=== PATIENT | male | born 1935 | race Caucasian/White ===

== ENCOUNTER 2023-09-12 11:02 | Emergency (ER) | payer OTHER ==
--- OUTSIDE RECORDS SUMMARY | 2023-09-12 11:04 | XMS REPORT | Continuity of Care Document ---
Author Name Unknown Address [address] [place] [address] [address] th[address] Address 1200 [facility] 1 495 [place] [address] Care Team Providers Care Naval Inspector Name Role Phone BHARATHI MCGEE Primary Care Physician Russel Jerome Attending Clinician Unavailable [place] Attending Clinician UnavailMANI Stephens WAITER/WAITRESS CAFETERIA Attending Clinician Russel Trimble Admitting Clinician Unavailable BHARATHI MCGEE Admitting Clinician Unavailable [place] Admitting Clinician Ely marroquin Payers Payer Name Policy Type Policy Number Effective Date Expirati on Date Source MEDICARE [place]: [employer] [id number] 2001 00:00:00 OPALAHA (MEDICARE SUPPLEMENT) [id number] 2015 00:00:00 Problems Condition Name Condition Details Condition Category Status Onset Date Resolution Date Last Treatment Date Treating Clinician Comments Source 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 Problem Active 08-20 00:00: 00 [facility] Stenosis of interverte bral foramina Stenosis of Interverte bral Foramina Problem Active 08-20 00:00: 00 [facility] Low back pain Low Back Pain Problem Active 08-20 00:00: 00 [facility] Lumbar radiculopa thy Lumbar Radiculopa thy Problem Active 08-18 00:00: 00 [facility] Allergies, Adverse Reactions, Alerts Allergy Name Allergy Type Status Severity Reaction(s) Onset Date Inactive Date Treating Clinician Comments Source No Known Drug Allergie s DA Active U 2023-08-26 00:00: 00 [facility] Social History Smoking Status Start Date Stop Date Source Former Smoker [facility] Medications Ordered Medication Name Filled Medication Name Start Date Stop Date Current Medication? Ordering Clinician Indication Dosage Frequency Signature (SIG) Comments Components Source ciprofloxac in 250 mg tablet TAKE 1 TABLET BY MOUTH EVERY 12 HOURS FOR 10 DAYS ciprofloxac in 250 mg tablet TAKE 1 TABLET BY MOUTH EVERY 12 HOURS FOR 10 DAYS No ciprofloxa linnea 250 mg tablet TAKE 1 TABLET BY MOUTH EVERY 12 HOURS FOR 10 DAYS [facility] clonidine HCl 0.1 mg tablet TAKE 1 TABLET BY MOUTH TWICE A DAY FOR 30 DAYS clonidine HCl 0.1 mg tablet TAKE 1 TABLET BY MOUTH TWICE A DAY FOR 30 DAYS No clonidine HCl 0.1 mg tablet TAKE 1 TABLET BY MOUTH TWICE A DAY FOR 30 DAYS [facility] clonidine HCl 0.2 mg tablet TAKE 2 TABLETS BY MOUTH 3 TIMES A DAY clonidine HCl 0.2 mg tablet TAKE 2 TABLETS BY MOUTH 3 TIMES A DAY No clonidine HCl 0.2 mg tablet TAKE 2 TABLETS BY MOUTH 3 TIMES A DAY [facility] clonidine HCl 0.3 mg tablet TAKE 1 TABLET BY MOUTH THREE TIMES A DAY ORALLY EVERY 8 HOURS 90 DAYS clonidine HCl 0.3 mg tablet TAKE 1 TABLET BY MOUTH THREE TIMES A DAY ORALLY EVERY 8 HOURS 90 DAYS No clonidine HCl 0.3 mg tablet TAKE 1 TABLET BY MOUTH THREE TIMES A DAY ORALLY EVERY 8 HOURS 90 DAYS [facility] diclofenac sodium 50 mg tablet,helga yed release TAKE 1 TABLET BY MOUTH TWICE A DAY NEEDED FOR 5 DAYS diclofenac sodium 50 mg tablet,helga yed release TAKE 1 TABLET BY MOUTH TWICE A DAY NEEDED FOR 5 DAYS No diclofenac sodium 50 mg tablet,del ayed release TAKE 1 TABLET BY MOUTH TWICE A DAY NEEDED FOR 5 DAYS [facility] gabapentin 300 mg capsule TAKE 2 CAPSULES BY MOUTH 3 TIMES A DAY gabapentin 300 mg capsule TAKE 2 CAPSULES BY MOUTH 3 TIMES A DAY No gabapentin 300 mg capsule TAKE 2 CAPSULES BY MOUTH 3 TIMES A DAY [facility] hydrochloro thiazide 25 mg tablet TAKE 1 TABLET BY MOUTH EVERY DAY IN THE MORNING FOR 30 DAYS hydrochloro thiazide 25 mg tablet TAKE 1 TABLET BY MOUTH EVERY DAY IN THE MORNING FOR 30 DAYS No hydrochlor othiazide 25 mg tablet TAKE 1 TABLET BY MOUTH EVERY DAY IN THE MORNING FOR 30 DAYS [facility] hydrocodone 10 mg-acetamin ophen 325 mg tablet Take 1 tablet every 6 hours by oral route for 7 days. hydrocodone 10 mg-acetamin ophen 325 mg tablet Take 1 tablet every 6 hours by oral route for 7 days. No hydrocodon e 10 mg-acetami nophen 325 mg tablet Take 1 tablet every 6 hours by oral route for 7 days. [facility] hydrocodone 5 mg-acetamin ophen 325 mg tablet TAKE 1 TABLET BY MOUTH EVERY 6 HOURS NEEDED hydrocodone 5 mg-acetamin ophen 325 mg tablet TAKE 1 TABLET BY MOUTH EVERY 6 HOURS NEEDED No hydrocodon e 5 mg-acetami nophen 325 mg tablet TAKE 1 TABLET BY MOUTH EVERY 6 HOURS NEEDED [facility] hydrocodone 7.5 mg-acetamin ophen 325 mg tablet TAKE 1 TABLET BY MOUTH EVERY 6 HOURS NEEDED FOR PAIN hydrocodone 7.5 mg-acetamin ophen 325 mg tablet TAKE 1 TABLET BY MOUTH EVERY 6 HOURS NEEDED FOR PAIN No hydrocodon e 7.5 mg-acetami nophen 325 mg tablet TAKE 1 TABLET BY MOUTH EVERY 6 HOURS NEEDED FOR PAIN [facility] ketorolac 10 mg tablet TAKE 1 TABLET BY MOUTH EVERY 6 HOURS FOR 5 DAYS ketorolac 10 mg tablet TAKE 1 TABLET BY MOUTH EVERY 6 HOURS FOR 5 DAYS No ketorolac 10 mg tablet TAKE 1 TABLET BY MOUTH EVERY 6 HOURS FOR 5 DAYS [facility] methocarbam ol 750 mg tablet TAKE 1 TABLET BY MOUTH EVERY 4 HOURS NEEDED FOR 15 DAYS methocarbam ol 750 mg tablet TAKE 1 TABLET BY MOUTH EVERY 4 HOURS NEEDED FOR 15 DAYS No methocarba mol 750 mg tablet TAKE 1 TABLET BY MOUTH EVERY 4 HOURS NEEDED FOR 15 DAYS [facility] nebivolol 20 mg tablet TAKE 1 TABLET BY MOUTH EVERY DAY FOR 30 DAYS nebivolol 20 mg tablet TAKE 1 TABLET BY MOUTH EVERY DAY FOR 30 DAYS No nebivolol 20 mg tablet TAKE 1 TABLET BY MOUTH EVERY DAY FOR 30 DAYS [facility] nifedipine ER 60 mg tablet,exte nded release TAKE 1 TABLET BY MOUTH EVERY DAY ON EMPTY STOMACH FOR 30 DAYS nifedipine ER 60 mg tablet,exte nded release TAKE 1 TABLET BY MOUTH EVERY DAY ON EMPTY STOMACH FOR 30 DAYS No nifedipine ER 60 mg tablet,ext ended release TAKE 1 TABLET BY MOUTH EVERY DAY ON EMPTY STOMACH FOR 30 DAYS [facility] tamsulosin 0.4 mg capsule TAKE 1 CAPSULE BY MOUTH EVERY DAY FOR 30 DAYS tamsulosin 0.4 mg capsule TAKE 1 CAPSULE BY MOUTH EVERY DAY FOR 30 DAYS No tamsulosin 0.4 mg capsule TAKE 1 CAPSULE BY MOUTH EVERY DAY FOR 30 DAYS [facility] tramadol 50 mg tablet TAKE 1 TABLET BY MOUTH EVERY 4-6 HOURS X 7 DAYS tramadol 50 mg tablet TAKE 1 TABLET BY MOUTH EVERY 4-6 HOURS X 7 DAYS No tramadol 50 mg tablet TAKE 1 TABLET BY MOUTH EVERY 4-6 HOURS X 7 DAYS [facility] Procedures Procedure Date / Time Performed Performing Clinician Source RADEX SPI LUMBOSAC COMPL W/BENDING VIEWS 2023-08-19 00:00:00 [facility] Gall[facility] Encounters Start Date/Time End Date/Time Encounter Type Admission Type Attending Clinicians Care Facility Care Department Encounter ID Source 2023-09-18 09:45:00 Inpatient Russel Landa [facility] [id number] [facility] 2023-09-09 00:00:00 2023-09-09 00:00:00 Candelario Guzman MD: [address] [place] [address] , Ph. [phone] [facility] [id number] [facility] 2023-08-28 07:43:00 2023-08-28 07:43:00 Outpatient Jacques Landar [facility] [id number] [facility] [place] [facility] 2023-08-28 00:00:00 2023-08-28 00:00:00 Stockton Rai, MD: [address] [place] [phone] , Ph. [facility] [place] [facility]_OP [id number] [facility] 2023-08-21 00:00:00 2023-08-21 00:00:00 Brionna Cantrell PA: [address] [place] [phone] , Ph. [phone] [facility] [place] [facility] [id number] [facility] 2023-08-21 00:00:00 2023-08-21 00:00:00 Brionna Cantrell PA: [address] [place] [phone] , Ph. [phone] [place] [facility] [place] [id number] [facility] 2023-08-19 00:00:00 2023-08-19 00:00:00 Candelario Guzman MD: [address] [place] [phone] , Ph. [phone] [facility]_Thomas [facility] [place] [facility] [id number] [facility] 2023-08-19 00:00:00 2023-08-19 00:00:00 Candelario Guzman MD: [address] [place] [phone] , Ph. [phone] [facility] [place] [facility] [place] [id number] [facility] 2023-08-10 00:00:00 2023-08-10 00:00:00 Outpatient [facility] [id number] [facility] 2023-08-05 00:00:00 2023-08-05 00:00:00 Outpatient [facility] [id number] [facility] 2023-04-30 16:49:00 2023-04-30 16:49:00 Outpatient MANI WONG [facility] [id number] SASKIA Flaherty [facility] Results Test Description Test Time Test Comments Results Resul t Comments Source - XR FLUORO FOR SPINE INJ 2023-09-04 18:35:00 [facility] 1935 Sex: M Patient Name: YENI BOWMAN Unit No: [id number] EXAMS: CPT CODE: [id number] XR FLUORO FOR SPINE INJ 66723 LUMBAR EPIRADICULAR INJECTION PREOPERATIVE DIAGNOSIS: Lumbar Radiculitis POSTOPERATIVE DIAGNOSIS: Same as above PROCEDURES PERFORMED: Fluoroscopically guided needle localization of the right L3, L4, L5 spinal nerves with transforaminal epidurograms and epidural injection of local anesthetic and steroid. FINDINGS: Preinjection VAS 7/10. Postinjection VAS 0/10. Steroid response pending follow-up. ESTIMATED BLOOD LOSS: Minimal ANESTHESIA: TIVA COMPLICATIONS: None DETAILS OF PROCEDURE: After obtaining stable vital signs, informed consent and IV access, with no contraindications, the patient was taken to the operating room and placed in a prone position with all extremities padded and appropriate monitors placed. The patient was sterilely prepped and draped over the lumbosacral spine. Using fluoroscopic visualization the insertion sites were marked for paravertebral approaches and using standard technique, a 25 gauge needle was advanced to the base of each pedicle without paresthesias. Isovue-300 contrast 0.2 mL of was injected at each level incrementally with frequent negative aspirations to produce each epidurogram. There were no signs of intravascular or intrathecal uptake. Bupivicaine 0.75% 0.25 mL with lidocaine 4% 0.5 mL and Decadron 5 mg was then incrementally injected with frequent negative aspirations at each level and again there were no signs of intravascular or intrathecal uptake. The needles were removed and the patient was taken to the PACU in good condition. Image: Image 1 Image: Image 2 at 1835 Reported and signed by: RAI TALLEY MD CC: Russel Atwood MD Technologist: ARABELLA LALA (ARRT) Transcribed D/ (1834) [facility] NAME: YENI BOWMAN [address] [facility] PHYS: Russel Morton MD [place], [place] [address] : 1935 AGE: 87 SEX: M LOC: PANDA PHONE #: [phone] EXAM DATE: 08/28/2023 STATUS: DEP [facility] FAX #: [phone] RAD #: D/C DT PAGE 1 Signed Report Patient Name: YENI BOWMAN Unit No: [id number] EXAMS: CPT CODE: [id number] XR FLUORO FOR SPINE INJ 35535 (Continued) Orig Print D/T: S: 09/04/2023 (1837) [facility] NAME: YENI BOWMAN [address] [facility] PHYS: Russel Morton MD [place], [place] [address] : 1935 AGE: 87 SEX: M LOC: PANDA PHONE #: [phone] EXAM DATE: 08/28/2023 STATUS: DEP [facility] [place] #: [phone] RAD #: D/C DT PAGE 2 Signed Report
[2023-09-12] MEDS ORDERED: ONDANSETRON 4 MG/2 ML VIAL ONE (11:28)
[2023-09-12] MEDS ORDERED: NA CHLORIDE 0.9% 1,000 ML ONE (11:28)
[2023-09-12] MEDS ORDERED: LACTULOSE 20 GM/30 ML UCUP ONE (11:28)
[2023-09-12 11:50] LABS: Absolute Basophils 0.1 K/uL (0-0.5); Absolute Eosinophils 0.1 K/uL (0-0.5); Absolute Monocytes 1.2 K/uL (0.1-1.3); Absolute Neutrophil 9.4 K/uL (1.8-8.0); Basophils % 1.1 % (0-1.3); Eosinophils % 0.5 % (0-4.4); Hematocrit 34.8 % (39.6-49.0); Hemoglobin 11.4 g/dL (13.6-17.9); Lymphocytes % 15.6 % (15.3-44.8); MCH 29.7 pg (27.0-35.0); MCHC 32.9 g/dL (32.0-36.0); MCV 90.2 fL (80-100); MPV 9.1 fL (7.6-11.3); Monocytes % 9.4 % (3.3-12.3); Neutrophils % 73.4 % (41.7-73.7); Nucleated Red Blood Cells % 0.1 % (0-0); Platelets 731 thou/uL (152-406); RBC Red Blood Cell Count 3.85 M/uL (4.33-5.43); Red Cell Distribution Width 16.8 % (12.1-15.2)
[2023-09-12] MEDS ORDERED: BISACODYL 10 MG RECTAL SUPP ONE (12:21)
[2023-09-12 12:22] LABS: Albumin 4.1 g/dL (3.4-5.0); Albumin/Globulin Ratio 0.9 (1.1-1.8); Anion Gap 14.7 mEq/L (5.0-15.0); Globulin 4.5 g/dL (2.3-3.5); Potassium 3.7 mEq/L (3.5-5.1); Protein, Total 8.6 g/dL (6.4-8.2)
--- NOTE | 2023-09-12 13:08 | RAD REPORT ---
EXAM DESCRIPTION: CTAbdomen Pelvis Wo Contrast - 09/12/2023 12:42 pm CLINICAL HISTORY: Abd pain;Constipation COMPARISON: ERCPBILIARY SYSTEM dated 02/07/2009; HEAD BRAIN W O CONTRAST dated 02/13/2009; CTANGIO AORT A FOR DISSECTION dated 02/06/2009 TECHNIQUE: CT of the abdomen and pelvis was performed. All CT scans are performed using dose optimization technique as appropriate and may include automated exposure control or mA/KV adjustment according to patient size. FINDINGS: Lower chest: Scattered calcified pulmonary nodules. Liver: Biliary duct dilatation to the left hepatic lobe this is new from prior. Vague area of hypoatt enuation in the hepatic dome is not well assessed. Biliary: Cholecystectomy. Stomach: No significant focal abnormality. Duodenum: No significant focal abnormality. Pancreas: Question some cystic changes in the pancreatic head. This areas not well assessed without c ontrast. No pancreatic ductal dilatation is appreciated. Spleen: No significant abnormality. Adrenal: No suspicious lesions. Kidney/ureter: No hydronephrosis. No renal calculi. Too small to characterize and/or benign appearing renal lesions are noted. Retroperitoneum: No retroperitoneal adenopathy. Vascular: No aneurysm. Atherosclerosis Bowel: Moderate semi formed stool in the colon.. Diverticulosis without diverticulitis. No appendix i dentified. No secondary signs of acute appendicitis. Peritoneum: No ascites or free air. Bladder: Grossly unremarkable. Reproductive: No adnexal masses. Bones: Sclerotic appearance of the T10 vertebral body as well as a mixed lytic and sclerotic appearan ce of the right bony pelvis including portions of the ischium and iliac bone. Other: n/a IMPRESSION: Moderate semi formed stool in the colon could reflect constipation. No bowel obstruction . Sclerotic appearance of the T10 vertebral body and portions of the right bony pelvis could represent either osseous metastatic disease or possibly polyostotic Paget's disease, however metastatic disease should be assumed until proven otherwise. Intrahepatic biliary duct dilatation the left hepatic lobe. Consider hepatic protocol MRI to evaluate for a centrally obstructing lesion. There is also a vague area of hypoattenuation in the hepatic dom e is not well assessed.
[2023-09-12] MEDS ORDERED: NA CHLORIDE 0.9% 100 ML ONE (15:07)
[2023-09-12] MEDS ORDERED: FAMOTIDINE 20 MG/2 ML VIAL IV ONE (15:07)
[2023-09-12] MEDS ORDERED: PIPERACIL/TAZO 3.375 GM VIAL IV ONE (15:07)
--- NOTE | 2023-09-12 15:12 | ER ---
Nurse's Notes [facility] Name: Tc Doyle Age: 87 yrs Sex: Male : 1935 Arrival Date: 09/12/2023 Time: 11:02 Bed 2 Private MD: Diagnosis: Abdominal pain, Generalized;Abnormal level of enzymes in specimens from digestive organs and abdominal cavity-elevated transaminases;Abnormal findings on diagnostic imaging of liver and biliary tract-intrahepatic duct dilation and hypoattenuation lesion at the hepatic dome;Constipation;Other chronic pain Presentation: 09/11 11:06 Chief complaint: EMS states: Pt c/o constipation, last BM on Saturday, takes [place] 10 q6h ph for chronic pain, has tried enemas, suppository, and magnesium citrate, reports passing small amount of liquid stool. Coronavirus screen: Vaccine status: Patient reports receiving the 2nd dose of the covid vaccine. Ebola Screen: No symptoms or risks identified at this time. Initial Sepsis Screen: Does the patient meet any 2 criteria? No. Patient's initial sepsis screen is negative. Does the patient have a suspected source of infection? No. Patient's initial sepsis screen is negative. Risk Assessment: Do you want to hurt yourself or someone else? Patient reports no desire to harm self or others. Onset of symptoms was September 12, 2023. 11:06 Method Of Arrival: EMS: [facility] 11:06 Acuity: BRENNAN 3 ph Triage Assessment: 11:12 General: Appears in no apparent distress. Behavior is cooperative, anxious. Pain: ph Complains of pain in back and buttocks. Neuro: Level of Consciousness is awake, alert, obeys commands, Oriented to person, place, time, situation. Cardiovascular: Capillary refill < 3 seconds in bilateral fingers Patient's skin is warm and dry. Respiratory: Airway is compromised Respiratory effort is even, unlabored. GI: Reports constipation. Derm: Skin is pink, warm \T\ dry. Musculoskeletal: Circulation, motion, and sensation intact. Range of motion: intact in all extremities. Historical: - Allergies: 11:11 No Known Allergies; ph - Home Meds: 17:18 hydrocodone-acetaminophen 10-325 mg Oral tablet 1 tab every 6 hours [Active]; tl4 gabapentin 300 mg oral capsule 2 caps 3 times per day [Active]; Nifedipine ER Oral 60 mg daily [Active]; clonidine HCl 0.2 mg Oral tablet 1 tab [Active]; hydrochlorothiazide 25 mg Oral tablet 1 tabs daily [Active]; tamsulosin 0.4 mg oral capsule 1 cap daily [Active]; - PMHx: 11:11 Hypertensive disorder; Chronic pain; ph - Immunization history:: Adult Immunizations unknown. - Infectious Disease History:: Denies. - Social history:: Smoking status: Patient denies any tobacco usage or history of. - Family history:: not pertinent. Screenin:13 [facility] ED Fall Risk Assessment (Adult) History of falling in the last 3 months, ph including since admission No falls in past 3 months (0 pts) Confusion or Disorientation No (0 pts) Intoxicated or Sedated No (0 pts) Impaired Gait No (0 pts) Mobility Assist Device Used Yes (1 pt) Altered Elimination No (0 pt) Score/Fall Risk Level 0 - 2 = Low Risk Oriented to surroundings, Maintained a safe environment, Hourly rounding (assess needs \T\ fall precautionary measures) done. Abuse screen: Denies threats or abuse. Denies injuries from another. Nutritional screening: No deficits noted. Tuberculosis screening: No symptoms or risk factors identified. Assessment: 11:14 Reassessment: Pt states he feels like he needs to have a bowel movement, assisted to bedside commode. 11:42 Reassessment: Pt successfully had a bowel movement. General: SEE TRIAGE ASSESSMENT. 12:12 Reassessment: Patient and/or family updated on plan of care and expected duration. Pain tl4 level reassessed. Patient is alert, oriented x 3, equal unlabored respirations, skin warm/dry/pink. Patient states symptoms have improved. 13:19 Reassessment: Patient and/or family updated on plan of care and expected duration. Pain tl4 level reassessed. Patient is alert, oriented x 3, equal unlabored respirations, skin warm/dry/pink. Pt had moderate soft bowel movement. Pt denies any needs at this time. Will continue to monitor. 14:25 Reassessment: Patient and/or family updated on plan of care and expected duration. Pain tl4 level reassessed. Patient is alert, oriented x 3, equal unlabored respirations, skin warm/dry/pink. Patient states symptoms have improved. 14:46 Reassessment: Pt has had multiple small, watery stools. Pt states he feels better. tl4 Bedside commode cleaned and changed. Pt denies any needs at this time. Will continue to monitor. 17:22 Reassessment: Attempt to call report, no answer. tl4 17:59 Reassessment: Attempt to call report, no answer. tl4 18:14 Reassessment: Patient and/or family updated on plan of care and expected duration. Pain tl4 level reassessed. Patient is alert, oriented x 3, equal unlabored respirations, skin warm/dry/pink. Patient states symptoms have improved. 18:28 Reassessment: Attempt to call report, no answer. tl4 18:45 Reassessment: Attempt to call report, no answer. Reassessment: Attempt to call report, tl4 no answer. 19:00 Reassessment: Attempt to call report, no answer. tl4 19:13 Reassessment: No changes from previously documented assessment. Patient and/or family tl4 updated on plan of care and expected duration. Pain level reassessed. Patient is alert, oriented x 3, equal unlabored respirations, skin warm/dry/pink. 19:13 Reassessment: Attempt to call report, no answer. tl4 19:46 Reassessment: Attempt to call report, no answer. tl4 21:05 Reassessment: No changes from previously documented assessment. Patient and/or family tm6 updated on plan of care and expected duration. Pain level reassessed. Vital Signs: 11:06 BP 160 / 79; Pulse 105; Resp 18; Temp 97.7; Pulse Ox 100% on R/A; ph 12:10 BP 160 / 79; Pulse 103; Resp 16; Pulse Ox 94% on R/A; Pain 6/10; tl4 13:24 BP 195 / 91; Pulse 108; Resp 18; Pulse Ox 95% on R/A; Pain 0/10; tl4 14:25 BP 178 / 89; Pulse 104; Resp 15; Pulse Ox 99% on R/A; Pain 0/10; tl4 16:44 BP 188 / 97; Pulse 91; Resp 16; Pulse Ox 97% on R/A; tl4 18:14 BP 179 / 74; Pulse 90; Resp 18; Pulse Ox 98% ; tl4 19:12 BP 179 / 93; Pulse 92; Resp 18; Pulse Ox 95% on R/A; tl4 21:05 BP 112 / 57; Pulse 96; Resp 19; Temp 97.8(TE); Pulse Ox 95% on R/A; tm6 12:10 Pain Scale: Adult tl4 13:24 Pain Scale: Adult tl4 14:25 Pain Scale: Adult tl4 ED Course: 11:04 Patient arrived in ED. chelle 11:04 Anupam Regan MD is Attending Physician. chelle 11:05 Kylee Gross RN is Primary Nurse. ph 11:11 Triage completed. ph 11:11 Arm band placed on Patient placed in an exam room, on a stretcher. ph 11:13 Patient has correct armband on for positive identification. Bed in low position. Call ph light in reach. Side rails up X 1. Pulse ox on. NIBP on. Door closed. Noise minimized. Warm blanket given. 11:44 Comprehensive Metabolic Panel Sent. mb9 11:44 CBC with Diff Sent. mb9 11:44 Initial lab(s) drawn, by de, sent to lab. Inserted saline lock: 20 gauge in right mb9 antecubital area, using aseptic technique. 12:42 Abdomen In Process Unspecified. EDMS 20:29 EMS will be transporting Pt with an ETA \T\ 2049. wm 21:07 Provided Education on: need for transfer. tm6 21:07 No provider procedures requiring assistance completed. Patient transferred, IV remains tm6 in place. Administered Medications: 12:10 Drug: NS 0.9% IV 1000 ml IV at 1 bolus Per protocol; 1000 mL bolus Route: IV; Rate: 1 tl4 bolus; Site: right antecubital; Delivery: Primary tubing; 17:17 Follow up: Response: No adverse reaction; IV Status: Completed infusion; IV Intake: tl4 1000ml 12:13 Drug: Ondansetron IVP 4 mg IVP once; over 2 minutes Route: IVP; Infused Over: 2 mins; tl4 Site: right antecubital; 12:43 Follow up: Response: No adverse reaction tl4 12:19 Drug: Lactulose PO 60 grams 45 ml PO once Volume: 45 ml; Route: PO; tl4 12:43 Follow up: Response: No adverse reaction tl4 12:23 Drug: Dulcolax NH Suppository 10 mg NH once Route: NH; tl4 12:44 Follow up: Response: No adverse reaction tl4 16:04 Drug: Piperacillin-Tazobactam IVPB 3.375 grams IVPB once over 60 mins; (mix in NS 100 tl4 mL) Route: IVPB; Infused Over: 60 mins; Site: right antecubital; 17:16 Follow up: Response: No adverse reaction; IV Status: Completed infusion; IV Intake: tl4 100ml 16:04 Drug: Famotidine IVP 20 mg IVP once; dilute with 10 mL 0.9% NaCl; give over 2 minutes tl4 Route: IVP; Infused Over: 2 mins; Site: right antecubital; 17:16 Follow up: Response: No adverse reaction tl4 16:05 Drug: HYDROcodone-acetaminophen PO 10 mg-325 mg 1 tabs PO once Route: PO; tl4 17:16 Follow up: Response: No adverse reaction; Pain is decreased tl4 20:22 Drug: NIFEdipine PO 30 mg PO once Route: PO; tm6 Medication: 11:13 VIS not applicable for this client. ph Intake: 17:16 IV: 100ml; Total: 100ml. tl4 17:17 IV: 1000ml; Total: 1100ml. tl4 Outcome: 15:12 ER care complete, transfer ordered by MD. corbett 21:07 [place]red [facility] ground [facility] [place] [facility] [facility] [place] 21:07 Condition: stable 21:07 Instructed on the need for transfer, 21:08 Patient left the ED. tm6 Signatures: Dispatcher [employer] Anupam Noguera MD MD cha Hall, Patricia, RN RN Sweta Carlisle Mary Beth, RN RN mb9 Anayeli Sumner RN RN tm6 Delano Sandoval RN RN tl4 Corrections: (The following items were deleted from the chart) 13:24 12:10 BP 195 / 91; Pulse 108bpm; Resp 18bpm; Pulse Ox 95% RA; Pain 0/10, Adult; tl4 tl4
--- NOTE | 2023-09-12 15:12 | EDPHYS ---
Physician Documentation [facility] Name: Tc Doyle Age: 87 yrs Sex: Male : 1935 Arrival Date: 09/12/2023 Time: 11:02 Bed 2 Private MD: ED Physician Anupam Regan HPI: 09/11 14:59 This 87 yrs old Male presents to ER via EMS with complaints of Constipation. chelle 14:59 The patient presents with abdominal pain in the epigastric area, in the upper abdomen, chelle abdominal distention in the upper abdomen, in the lower abdomen. Onset: The symptoms/episode began/occurred 3 day(s) ago. The symptoms do not radiate. Associated signs and symptoms: Pertinent positives: constipation. The symptoms are described as crampy. Modifying factors: The symptoms are alleviated by nothing, the symptoms are aggravated by nothing. Severity of pain: At its worst the pain was moderate in the emergency department the pain is unchanged. The patient has experienced similar episodes in the past, several times. Historical: - Allergies: 11:11 No Known Allergies; ph - Home Meds: 17:18 hydrocodone-acetaminophen 10-325 mg Oral tablet 1 tab every 6 hours [Active]; tl4 gabapentin 300 mg oral capsule 2 caps 3 times per day [Active]; Nifedipine ER Oral 60 mg daily [Active]; clonidine HCl 0.2 mg Oral tablet 1 tab [Active]; hydrochlorothiazide 25 mg Oral tablet 1 tabs daily [Active]; tamsulosin 0.4 mg oral capsule 1 cap daily [Active]; - PMHx: 11:11 Hypertensive disorder; Chronic pain; ph - Immunization history:: Adult Immunizations unknown. - Infectious Disease History:: Denies. - Social history:: Smoking status: Patient denies any tobacco usage or history of. - Family history:: not pertinent. ROS: 14:59 Constitutional: Negative for fever, chills, and weight loss, Eyes: Negative for injury, chelle pain, redness, and discharge, ENT: Negative for injury, pain, and discharge, Neck: Negative for injury, pain, and swelling, Cardiovascular: Negative for chest pain, palpitations, and edema, Respiratory: Negative for shortness of breath, cough, wheezing, and pleuritic chest pain, Back: Negative for injury and pain, : Negative for injury, bleeding, discharge, and swelling, MS/Extremity: Negative for injury and deformity, Skin: Negative for injury, rash, and discoloration, Neuro: Negative for headache, weakness, numbness, tingling, and seizure, Psych: Negative for depression, anxiety, suicide ideation, homicidal ideation, and hallucinations, Allergy/Immunology: Negative for hives, rash, and allergies, Endocrine: Negative for neck swelling, polydipsia, polyuria, polyphagia, and marked weight changes, Hematologic/Lymphatic: Negative for swollen nodes, abnormal bleeding, and unusual bruising, 14:59 Abdomen/GI: Positive for abdominal pain, constipation, abdominal cramps, of the suprapubic area, right upper quadrant, right lower quadrant and left lower quadrant, Exam: 14:59 Constitutional: This is a well developed, well nourished patient who is awake, alert, chelle and in no acute distress. Head/Face: Normocephalic, atraumatic. Eyes: Pupils equal round and reactive to light, extra-ocular motions intact. Lids and lashes normal. Conjunctiva and sclera are non-icteric and not injected. Cornea within normal limits. Periorbital areas with no swelling, redness, or edema. ENT: Nares patent. No nasal discharge, no septal abnormalities noted. Tympanic membranes are normal and external auditory canals are clear. Oropharynx with no redness, swelling, or masses, exudates, or evidence of obstruction, uvula midline. Mucous membranes moist. Neck: Trachea midline, no thyromegaly or masses palpated, and no cervical lymphadenopathy. Supple, full range of motion without nuchal rigidity, or vertebral point tenderness. No Meningismus. Chest/axilla: Normal chest wall appearance and motion. Nontender with no deformity. No lesions are appreciated. Cardiovascular: Regular rate and rhythm with a normal S1 and S2. No gallops, murmurs, or rubs. Normal PMI, no JVD. No pulse deficits. Respiratory: Lungs have equal breath sounds bilaterally, clear to auscultation and percussion. No rales, rhonchi or wheezes noted. No increased work of breathing, no retractions or nasal flaring. Back: No spinal tenderness. No costovertebral tenderness. Full range of motion. Male : Normal genitalia with no discharge or lesions. Skin: Warm, dry with normal turgor. Normal color with no rashes, no lesions, and no evidence of cellulitis. MS/ Extremity: Pulses equal, no cyanosis. Neurovascular intact. Full, normal range of motion. Neuro: Awake and alert, GCS 15, oriented to person, place, time, and situation. Cranial nerves II-XII grossly intact. Motor strength 5/5 in all extremities. Sensory grossly intact. Cerebellar exam normal. Normal gait. Psych: Awake, alert, with orientation to person, place and time. Behavior, mood, and affect are within normal limits. 14:59 Abdomen/GI: Inspection: distension, that is mild, Bowel sounds: normal, Palpation: mild abdominal tenderness, in the epigastric area, right upper quadrant, right lower quadrant and left lower quadrant, Liver: no appreciated palpable abnormalities, Hernia: not appreciated, Vital Signs: 11:06 BP 160 / 79; Pulse 105; Resp 18; Temp 97.7; Pulse Ox 100% on R/A; ph 12:10 BP 160 / 79; Pulse 103; Resp 16; Pulse Ox 94% on R/A; Pain 6/10; tl4 13:24 BP 195 / 91; Pulse 108; Resp 18; Pulse Ox 95% on R/A; Pain 0/10; tl4 14:25 BP 178 / 89; Pulse 104; Resp 15; Pulse Ox 99% on R/A; Pain 0/10; tl4 16:44 BP 188 / 97; Pulse 91; Resp 16; Pulse Ox 97% on R/A; tl4 18:14 BP 179 / 74; Pulse 90; Resp 18; Pulse Ox 98% ; tl4 19:12 BP 179 / 93; Pulse 92; Resp 18; Pulse Ox 95% on R/A; tl4 21:05 BP 112 / 57; Pulse 96; Resp 19; Temp 97.8(TE); Pulse Ox 95% on R/A; tm6 12:10 Pain Scale: Adult tl4 13:24 Pain Scale: Adult tl4 14:25 Pain Scale: Adult tl4 MDM: 11:05 Patient medically screened. chelle 15:04 Differential diagnosis: gastroesophageal reflux disease, GI Bleed, non-specific abd chelle pain, pancreatitis, Peptic Ulcer Disease, Peritonitis, Ureterolithiasis, urinary tract infection. Data reviewed: vital signs, nurses notes, lab test result(s), radiologic studies, CT scan. Consideration of Admission/Observation Escalation of care including admission/observation considered. I considered the following discharge prescriptions or medication management in the emergency department Medications were administered in the Emergency Department. See MAR. Independent interpretation of the following test(s) in the Emergency Department CT Scan: My interpretation is ct abd /pelvis. Test considered but Not performed: MRI: no mrcp. not available. 09/11 11:07 Order name: CBC with Diff; Complete Time: 14:42 [facility] 09/11 11:07 Order name: Comprehensive Metabolic Panel; Complete Time: 14:42 chelle 09/11 14:58 Order name: PT-INR; Complete Time: 20:17 [facility] 09/11 14:58 Order name: AMMONIA; Complete Time: 20:17 [facility] 09/11 14:58 Order name: Tylenol Level; Complete Time: 20:17 [facility] 09/11 11:13 Order name: Abdomen ; Complete Time: 14:42 EDMS 09/11 11:44 Order name: IV Saline Lock; Complete Time: 11:44 mb9 09/11 12:15 Order name: Misc. Order: give meds; Complete Time: 12:43 [facility] Administered Medications: 12:10 Drug: NS 0.9% IV 1000 ml IV at 1 bolus Per protocol; 1000 mL bolus Route: IV; Rate: 1 tl4 bolus; Site: right antecubital; Delivery: Primary tubing; 17:17 Follow up: Response: No adverse reaction; IV Status: Completed infusion; IV Intake: tl4 1000ml 12:13 Drug: Ondansetron IVP 4 mg IVP once; over 2 minutes Route: IVP; Infused Over: 2 mins; tl4 Site: right antecubital; 12:43 Follow up: Response: No adverse reaction tl4 12:19 Drug: Lactulose PO 60 grams 45 ml PO once Volume: 45 ml; Route: PO; tl4 12:43 Follow up: Response: No adverse reaction tl4 12:23 Drug: Dulcolax AL Suppository 10 mg AL once Route: AL; tl4 12:44 Follow up: Response: No adverse reaction tl4 16:04 Drug: Piperacillin-Tazobactam IVPB 3.375 grams IVPB once over 60 mins; (mix in NS 100 tl4 mL) Route: IVPB; Infused Over: 60 mins; Site: right antecubital; 17:16 Follow up: Response: No adverse reaction; IV Status: Completed infusion; IV Intake: tl4 100ml 16:04 Drug: Famotidine IVP 20 mg IVP once; dilute with 10 mL 0.9% NaCl; give over 2 minutes tl4 Route: IVP; Infused Over: 2 mins; Site: right antecubital; 17:16 Follow up: Response: No adverse reaction tl4 16:05 Drug: HYDROcodone-acetaminophen PO 10 mg-325 mg 1 tabs PO once Route: PO; tl4 17:16 Follow up: Response: No adverse reaction; Pain is decreased tl4 20:22 Drug: NIFEdipine PO 30 mg PO once Route: PO; tm6 Disposition Summary: 09/12/23 15:12 Transfer Ordered Notes: Transfer Location: [facility] chelle Reason: Higher level of care chelle Condition: Fair chelle Problem: new chelle Symptoms: have improved chelle Accepting Physician: to [facility](09/12/23 21:08) tm6 Diagnosis - Abdominal pain, Generalized chelle - Abnormal level of enzymes in specimens from digestive organs and abdominal cavity - chelle elevated transaminases - Abnormal findings on diagnostic imaging of liver and biliary tract - intrahepatic chelle duct dilation and hypoattenuation lesion at the hepatic dome - Constipation chelle - Other chronic pain chelle Forms: - Medication Reconciliation Form chelle - SBAR form chelle Signatures: Dispatcher [employer] EDAnupam Anthony MD MD cha Nieto, Roman, MD MD rn Hall, Patricia, RN RN rafal Randall, Adilia Russ, RN RN mb9 Anayeli Sumner RN RN tm6 Delano Sandoval RN RN tl4 Corrections: (The following items were deleted from the chart) 11:07 11:07 CBC+H.LAB.BRZ ordered. EDMS EDMS 11:07 11:07 COMPREHENSIVE METABOLIC PANEL+C.LAB.BRZ ordered. EDMS EDMS 11:07 11:07 Urinalysis+U.LAB.BRZ ordered. EDMS EDMS 11:07 11:07 Abdomen Pelvis W Con+CT.RAD.BRZ ordered. EDMS EDMS 14:58 14:58 PROTIME (+INR)+COAG.LAB.BRZ ordered. EDMS EDMS 14:58 14:58 AMMONIA+C.LAB.BRZ ordered. EDMS EDMS 14:58 14:58 ACETAMINOPHEN+C.LAB.BRZ ordered. EDMS EDMS 15:12 15:12 to [facility] chelle chelle 15:12 15:12 to [facility] chelle chelle :08 15:12 to [facility] tm6
[2023-09-12] MEDS ORDERED: HYDROCODONE/APAP 10/325 TAB ONE (15:58)
[2023-09-12 16:22] LABS: PT Prothrombin Time 12.2 SECONDS (9.5-12.5); Protime INR 1.11
[2023-09-12] MEDS ORDERED: NIFEdipine 10 MG CAP ONE (20:18)
[2023-09-13 03:51] VITALS: BP 112/57; TEMP 97.8; O2SAT 95
== END 2023-09-12 21:08 | disposition short-term general hospital (02) ==
LOC: ER 11:02
DX: K59.00 Constipation, unspecified (principal); R85.0 Abnormal level of enzymes in specimens from digestive organs and abdominal cavity; R93.2 Abnormal findings on diagnostic imaging of liver and biliary tract; K76.89 Other specified diseases of liver; G89.29 Other chronic pain; I10 Essential (primary) hypertension
CPT/HCPCS: 96365; 96361; 85025; 36415; 82140; 85610; 80053; 74176; 96375; 99285; 80143; J2543; J2405; J7030

== ENCOUNTER 2023-09-22 16:27 | Emergency (ER) | payer OTHER ==
--- NOTE | 2023-09-22 17:13 | RAD REPORT ---
EXAM DESCRIPTION: RAD - Chest Single View - 09/22/2023 4:58 pm CLINICAL HISTORY: CHEST PAIN COMPARISON: CHEST SINGLE VIEW dated 02/14/2009; CHEST SINGLE VIEW dated 02/06/2009 FINDINGS: Lines: None. Lungs: No evidence of edema or pneumonia. Pleural: No significant pleural effusions or pneumothorax. Cardiac: The heart size is within normal limits. Mediastinum: Within normal limits. Bones: No acute fractures. Other: None IMPRESSION: No acute cardiopulmonary disease.
[2023-09-22 17:17] LABS: Absolute Basophils 0.1 K/uL (0-0.5); Absolute Lymphocytes (CBC) 1.3 K/uL (0.7-4.9); Absolute Monocytes 0.9 K/uL (0.1-1.3); Absolute Neutrophil 8.5 K/uL (1.8-8.0); Basophils % 0.8 % (0-1.3); Eosinophils % 0.3 % (0-4.4); Hematocrit 33.8 % (39.6-49.0); Hemoglobin 10.8 g/dL (13.6-17.9); MCH 28.9 pg (27.0-35.0); MCV 90.2 fL (80-100); Monocytes % 8.1 % (3.3-12.3); Neutrophils % 78.8 % (41.7-73.7); Nucleated Red Blood Cells % 0.1 % (0-0); Platelets 621 thou/uL (152-406); RBC Red Blood Cell Count 3.75 M/uL (4.33-5.43); Red Cell Distribution Width 16.5 % (12.1-15.2)
[2023-09-22 17:43] LABS: Albumin 3.2 g/dL (3.4-5.0); Albumin/Globulin Ratio 0.8 (1.1-1.8); Bilirubin Total 0.7 mg/dL (0.2-1.0); Globulin 3.9 g/dL (2.3-3.5); Protein, Total 7.1 g/dL (6.4-8.2)
[2023-09-22 17:52] LABS: Specific Gravity 1.019 (1.005-1.030); Urine Bilirubin NEGATIVE (Negative); Urine Blood Negative (Negative); Urine Clarity Clear (Clear); Urine Color Light-Yellow (Yellow); Urine Glucose NEGATIVE (Negative); Urine Ketones NEGATIVE (Negative); Urine Microscopic Reflex YN NO UMIC; Urine Nitrite NEGATIVE (Negative); Urine Protein NEGATIVE (Negative); Urine Urobilinogen Normal (Normal)
--- NOTE | 2023-09-22 18:38 | RAD REPORT ---
EXAM DESCRIPTION: CTAbdomen Pelvis W Contrast - 09/22/2023 6:20 pm CLINICAL HISTORY: ABD PAIN COMPARISON: Abdomen Pelvis Wo Contrast dated 09/12/2023; CTANGIO AORTA FOR DISSECTION dated 9 TECHNIQUE: CT of the abdomen and pelvis was performed. All CT scans are performed using dose optimization technique as appropriate and may include automated exposure control or mA/KV adjustment according to patient size. FINDINGS: Lower chest: Unchanged 5 mm right lower lobe pulmonary nodule. Coronary artery calcificati ons. Liver: Similar intrahepatic biliary duct dilatation. Area of hypoattenuation at the hepatic dome is u nchanged. The biliary duct dilatation to the left hepatic lobe is more pronounced compared with the r ight side. There is some area of hypoattenuation in the left hepatic lobe and centrally in the liver near the ryan hepatis that is not well assessed. The presence of an underlying neoplasm is not exclu ded. Biliary: Cholecystectomy. Stomach: No significant focal abnormality. Duodenum: Possible contained perforation of the duodenum from peptic ulcer disease. Stranding is pres ent. Pancreas: There is some hypoenhancing material at the tail the pancreas, possibly fluid. No pancreati c ductal dilatation. This could be better assessed with MRI as well. Spleen: Remote splenic infarct. Adrenal: No suspicious lesions. Kidney/ureter: No hydronephrosis. No renal calculi. Too small to characterize and/or benign appearing renal lesions are noted. Retroperitoneum: No retroperitoneal adenopathy. Vascular: Atherosclerosis without aneurysm. Bowel: No significant focal abnormality. Peritoneum: No ascites or free air. Bladder: Grossly unremarkable. Reproductive: Within normal limits Bones: Mixed lytic and sclerotic process at the right iliac bone and at T10 is again noted. Multileve l degenerative changes are present in the spine. Other: n/a IMPRESSION: 1. Increased stranding and a small gas and fluid containing collection along the proxima l duodenum concerning for a contained perforation in the setting of peptic ulcer disease. Endoscopy c ould better evaluate. 2. Intrahepatic biliary duct dilatation which is out of proportion to the degree of extrahepatic bili saranya duct dilatation. The presence of a centrally obstructing mass cannot be excluded. Nonemergent hep at protocol MRI with MRCP should be considered. 3. Mixed lytic and sclerotic process at the right aspect of the bony pelvis and at T10 is again noted and could reflect either metastatic disease
[2023-09-22] MEDS ORDERED: NA CHLORIDE 0.9% 1,000 ML ONE (19:17)
--- NOTE | 2023-09-22 20:10 | ER ---
Nurse's Notes [facility] Name: Tc Doyle Age: 87 yrs Sex: Male : 1935 Arrival Date: 09/22/2023 Time: 16:27 Bed 14 Private MD: Diagnosis: Chest pain, unspecified;Abdominal pain, unspecified Presentation: 09/21 16:32 Chief complaint: EMS states: chest pain, shortness or breath, and abdominal pain. cp4 Reports hx of anxiety. Coronavirus screen: Vaccine status: Client denies travel out of the [place] in the last 14 days. At this time, the client does not indicate any symptoms associated with coronavirus-19. Ebola Screen: Patient negative for fever greater than or equal to 101.5 degrees Fahrenheit, and additional compatible Ebola Virus Disease symptoms Patient denies exposure to infectious person. Patient denies travel to an Ebola-affected area in the 21 days before illness onset. No symptoms or risks identified at this time. Initial Sepsis Screen: Does the patient meet any 2 criteria? No. Patient's initial sepsis screen is negative. Does the patient have a suspected source of infection? No. Patient's initial sepsis screen is negative. Risk Assessment: Do you want to hurt yourself or someone else? Patient reports no desire to harm self or others. Onset of symptoms was September 22, 2023. 16:32 Method Of Arrival: EMS: [place] [id number] 16:32 Acuity: BRENNAN 3 cp4 Triage Assessment: 16:34 General: Appears uncomfortable, Behavior is calm, cooperative, appropriate for age. cp4 Pain: Complains of pain in chest and abdomen Pain currently is 10 out of 10 on a pain scale. Cardiovascular: Reports chest pain, nausea, shortness of breath, Rhythm is sinus rhythm. Historical: - Allergies: 16:34 No Known Allergies; cp4 - PMHx: 16:34 Chronic pain; Hypertensive disorder; cp4 - Immunization history:: Adult Immunizations up to date. - Infectious Disease History:: Denies. CDIFF, C. Auris, ESBL, MRSA (w/in 1 year), VRE (w/in 1 year), TB, . - Social history:: Smoking status: Patient denies any tobacco usage or history of. - Family history:: not pertinent. Screenin:43 [facility] ED Fall Risk Assessment (Adult) History of falling in the last 3 months, cp4 including since admission No falls in past 3 months (0 pts) Confusion or Disorientation No (0 pts) Intoxicated or Sedated No (0 pts) Impaired Gait No (0 pts) Mobility Assist Device Used No (0 pt) Altered Elimination No (0 pt) Score/Fall Risk Level 0 - 2 = Low Risk Oriented to surroundings, Maintained a safe environment, Assessed \T\ reinforced patient's understanding of fall precautions, Hourly rounding (assess needs \T\ fall precautionary measures) done. Abuse screen: Denies threats or abuse. Nutritional screening: No deficits noted. Tuberculosis screening: No symptoms or risk factors identified. Assessment: 16:43 Pain: Pain does not radiate. Pain began suddenly. cp4 Vital Signs: 16:34 BP 154 / 80; Pulse 98; Resp 18; Temp 98; Pulse Ox 98% ; Pain 10/10; cp4 16:34 Pain Scale: Adult cp4 ED Course: 16:31 Patient arrived in ED. cp4 16:32 Gabriel Crump MD is Attending Physician. rt 16:32 Lili Urena is Primary Nurse. cp4 16:34 Triage completed. cp4 16:34 Arm band placed on right wrist. Patient placed in an exam room, on a stretcher. cp4 16:43 Bed in low position. Call light in reach. Side rails up X 1. Provided Education on: cp4 chest pain. Client placed on continuous cardiac and pulse oximetry monitoring. NIBP monitoring applied. environmental inspector on. 16:43 No provider procedures requiring assistance completed. Maintain EMS IV. Dressing cp4 intact. Good blood return noted. Site clean \T\ dry. Gauge \T\ site: 20G RAC. O2 via Room air. 17:00 Chest Single View XRAY In Process Unspecified. EDMS 17:10 CBC with Diff Sent. cp4 17:10 CMP Sent. cp4 17:10 Lipase Sent. cp4 18:22 CT Abd/Pelvis - IV Contrast Only In Process Unspecified. EDMS Administered Medications: 19:20 Drug: NS 0.9% IV 1000 ml IV at 1 bolus Per protocol; 1000 mL bolus Route: IV; Rate: 1 cp4 bolus; Site: right antecubital; 20:19 Follow up: Response: No adverse reaction; IV Status: Completed infusion cp4 Medication: 16:43 VIS not applicable for this client. cp4 Outcome: 20:09 Discharge ordered by . lexa 20:25 Patient left the ED. cp4 Signatures: Dispatcher [employer] EDMS Gabriel Crump MD MD rt Potepalov, Sergey, MD MD sp4 Lili Urena cp4
--- NOTE | 2023-09-22 20:10 | EDPHYS ---
Physician Documentation [facility] Name: Tc Doyle Age: 87 yrs Sex: Male : 1935 Arrival Date: 09/22/2023 Time: 16:27 Bed 14 Private MD: ED Physician Gabriel Crump HPI: 09/21 17:27 This 87 yrs old Male presents to ER via EMS with complaints of Chest Pain. rt 17:27 Patient presents to the ED with chest pain starting a few hours prior to arrival, rt lasted about 45 minutes and resolved. Patient also reports having a generalized abdominal pain with mild nausea. Reports having episode of shortness of breath, currently resolved as well. Denies other acute this time, symptoms are moderate in severity, no other aggravating or alleviating factors.. Historical: - Allergies: 16:34 No Known Allergies; cp4 - PMHx: 16:34 Chronic pain; Hypertensive disorder; cp4 - Immunization history:: Adult Immunizations up to date. - Infectious Disease History:: Denies. CDIFF, C. Auris, ESBL, MRSA (w/in 1 year), VRE (w/in 1 year), TB, . - Social history:: Smoking status: Patient denies any tobacco usage or history of. - Family history:: not pertinent. ROS: 17:27 Constitutional: Negative for fever, chills, and weight loss, MS/Extremity: Negative for rt injury and deformity, Skin: Negative for injury, rash, and discoloration, Neuro: Negative for headache, weakness, numbness, tingling, and seizure, 17:27 Cardiovascular: Positive for chest pain, Negative for edema, 17:27 Respiratory: Positive for shortness of breath, Negative for cough, 17:27 Abdomen/GI: Positive for abdominal pain, nausea, Exam: 17:27 Constitutional: This is a well developed, well nourished patient who is awake, alert, rt and in no acute distress. Head/Face: Normocephalic, atraumatic. Chest/axilla: Normal chest wall appearance and motion. Nontender with no deformity. No lesions are appreciated. Cardiovascular: Regular rate and rhythm with a normal S1 and S2. No gallops, murmurs, or rubs. Normal PMI, no JVD. No pulse deficits. Respiratory: Lungs have equal breath sounds bilaterally, clear to auscultation and percussion. No rales, rhonchi or wheezes noted. No increased work of breathing, no retractions or nasal flaring. Abdomen/GI: Soft, non-tender, with normal bowel sounds. No distension or tympany. No guarding or rebound. No evidence of tenderness throughout. Skin: Warm, dry with normal turgor. Normal color with no rashes, no lesions, and no evidence of cellulitis. MS/ Extremity: Pulses equal, no cyanosis. Neurovascular intact. Full, normal range of motion. Neuro: Awake and alert, GCS 15, oriented to person, place, time, and situation. Cranial nerves II-XII grossly intact. Motor strength 5/5 in all extremities. Sensory grossly intact. Cerebellar exam normal. Normal gait. 17:27 ECG was reviewed by the Attending Physician. Vital Signs: 16:34 BP 154 / 80; Pulse 98; Resp 18; Temp 98; Pulse Ox 98% ; Pain 10/10; cp4 16:34 Pain Scale: Adult cp4 MDM: 16:42 Patient medically screened. rt 19:45 Differential diagnosis: ACS, dysrhythmia, pneumonia, anxiety reaction, nonspecific rt abdominal pain, pancreatitis, bowel obstruction. HEART Score: History: Slightly Suspicious (0), ECG: Normal (0), Age: > or = 65 years (2), Risk Factors: 1 or 2 risk factors (1), Troponin: < or = 1 x Normal Limit (0), Total Score = 3. Data reviewed: vital signs, nurses notes, lab test result(s), EKG, radiologic studies. Consideration of Admission/Observation Escalation of care including admission/observation considered. Discussed findings at length with the patient, considered admission/transfer. Patient's LFTs and alk phos are at baseline for him. He does have a benign abdominal examination. I discussed the CT findings with the daughter. He did have a duodenal biopsy at that location, I suspect that this radiographic finding is due to the biopsy as compared to spontaneous perforation requiring surgical evaluation. With that he is stable for outpatient care at this time. I discussed strict return precautions for worsening abdominal pain. Patient has benign appearing EKG, negative troponin, symptoms not typical of an acute coronary syndrome, does not require admission for ACS rule out.. I considered the following discharge prescriptions or medication management in the emergency department Medications were administered in the Emergency Department. See MAR. Independent interpretation of the following test(s) in the Emergency Department CT Scan: My interpretation is No bowel obstruction syndrome interpretation of CT scan images. Care significantly affected by the following chronic conditions: Hypertension. Response to treatment: the patient's symptoms have markedly improved after treatment. 09/21 16:48 Order name: CBC with Diff; Complete Time: 18:03 rt 09/21 16:48 Order name: CMP; Complete Time: 18:03 rt 09/21 16:48 Order name: Lipase; Complete Time: 18:03 rt 09/21 16:48 Order name: Urinalysis w/ reflexes; Complete Time: 18:03 rt 09/21 16:48 Order name: Troponin High Sensitivity; Complete Time: 18:03 rt 09/21 16:48 Order name: CT Abd/Pelvis - IV Contrast Only; Complete Time: 18:40 rt 09/21 16:48 Order name: Chest Single View XRAY; Complete Time: 18:03 rt 09/21 16:48 Order name: IV Saline Lock; Complete Time: 16:50 rt 09/21 16:48 Order name: Labs collected and sent; Complete Time: 17:10 rt EC:27 Rate is 98 beats/min. Rhythm is regular, Normal Sinus Rhythm with No ectopy. QRS [place] rt is Normal. GA interval is normal. QRS interval is normal. QT interval is normal. No Q waves. No ST changes noted. Interpreted by me. Administered Medications: 19:20 Drug: NS 0.9% IV 1000 ml IV at 1 bolus Per protocol; 1000 mL bolus Route: IV; Rate: 1 cp4 bolus; Site: right antecubital; 20:19 Follow up: Response: No adverse reaction; IV Status: Completed infusion cp4 Disposition Summary: 09/22/23 20:09 Discharge Ordered Notes: Location: Home sp4 Problem: new sp4 Symptoms: have improved sp4 Condition: Stable sp4 Diagnosis - Chest pain, unspecified sp4 - Abdominal pain, unspecified sp4 Followup: rt - With: Private Physician - When: 2 - 3 days - Reason: Discharge Instructions: - Discharge Summary Sheet rt - Abdominal Pain, Adult rt Forms: - Patient Portal Instructions sp4 Prescriptions: - lorazepam 1 mg Oral tablet - take 1 tablet ORAL route every 6 hours as needed for anxiety; 18 tablet; rt Refills: 0, Product Selection Permitted Signatures: Dispatcher [employer] Gabriel Summers MD MD rt Jose Merrill MD MD sp4 Lili Urena cp4
[2023-09-22 20:36] VITALS: BP 154/80; TEMP 98; O2SAT 98
== END 2023-09-22 20:25 | disposition home or self-care (01) ==
LOC: ER 16:27
DX: R07.9 Chest pain, unspecified (principal); R10.84 Generalized abdominal pain; I10 Essential (primary) hypertension
CPT/HCPCS: 93005; 85025; 36415; 81003; 84484; 83690; 80053; 74177; 71045; 96360; 99285; Q9967; J7030

== ENCOUNTER 2023-10-07 04:24 | Emergency (ER) | payer OTHER ==
--- NOTE | 2023-10-07 07:38 | RAD REPORT ---
EXAM DESCRIPTION: RAD - Pelvis - 10/07/2023 7:16 am CLINICAL HISTORY: Pelvic pain status post injury FINDINGS: No fracture or dislocation is seen. If the patient continues to have symptoms to suggest an occult fracture then MRI would be recommended Due to technical issues the exam could not be read into now
--- NOTE | 2023-10-07 07:38 | RAD REPORT ---
EXAM DESCRIPTION: RAD - Hip Left 2 View - 10/07/2023 7:16 am CLINICAL HISTORY: Left hip pain status post injury FINDINGS: No fracture or dislocation is seen. If the patient continues to have symptoms to suggest an occult fracture then MRI would be recommended Due to technical issues the exam could not be read into now
--- NOTE | 2023-10-07 07:39 | RAD REPORT ---
EXAM DESCRIPTION: RAD - Hip Right 2 View - 10/07/2023 7:16 am CLINICAL HISTORY: Right hip pain FINDINGS: No fracture or dislocation is seen. If the patient continues to have symptoms to suggest an occult fracture then MRI would be recommended Due to technical issues the exam could not be read into now
[2023-10-07] MEDS ORDERED: HYDROCODONE/APAP 10/325 TAB ONE (08:10)
--- NOTE | 2023-10-07 08:15 | RAD REPORT ---
EXAM DESCRIPTION: CT - Head C Spine Mpr Wo Con - 10/07/2023 7:06 am CLINICAL HISTORY: Head and neck injury status post fall. Head and neck pain COMPARISON: None. TECHNIQUE: Computed axial tomography of the head and cervical spine was obtained. Sagittal and coronal reconstruction was performed. All CT scans are performed using dose optimization technique as appropriate and may include automated exposure control or mA/KV adjustment according to patient size. FINDINGS: Small posterior scalp hematoma. An intracranial bleed is not seen. The ventricles are normal in caliber. Mild low-density within periventricular, deep and subcortical white matter likely ischemic changes se condary to small vessel disease. An extra-axial fluid collection is not noted. Fluid within the visualized sinuses and mastoids is not seen A cervical fracture is not visualized. No dislocation is noted. Mild posterior subluxation C4 on C5 and C5 on C6. Moderate spondylosis. IMPRESSION: No acute intracranial abnormality is seen. A cervical fracture is not visualized. Mild posterior subluxation C4 on C5 and C5 on C6 probably chronic If the patient continues to have symptoms to suggest intracranial /spinal cord/ligamentous pathology then MRI would be recommended Due to technical issues the exam could not be dictated into now
--- NOTE | 2023-10-07 08:18 | EDPHYS ---
Physician Documentation [facility] Name: Tc Doyle Age: 87 yrs Sex: Male : 1935 Arrival Date: 10/07/2023 Time: 04:24 Bed 7 Private MD: ED Physician Jae Ramachandran HPI: 10/06 05:19 This 87 yrs old Male presents to ER via EMS with complaints of Fall Injury. rn 05:19 Details of fall: The patient fell from an upright position, while standing. Onset: The rn symptoms/episode began/occurred just prior to arrival. Associated injuries: The patient sustained injury to the head. Severity of symptoms: At their worst the symptoms were mild, in the emergency department the symptoms are unchanged. The patient has experienced similar episodes in the past. Patient reports stood up to use the bathroom, fell back and hit head, possible skin tear versus laceration on back of head per EMS. Patient denies LOC. No vomiting. Patient with history of pancreatic and biliary cancer, oncology does not feel like he can go through chemo at this time. They are talking about palliative care and/or hospice. Daughter states recurrent falls. Patient reports chronic pain to hips and knees with slightly increased pain to both hips after fall. Patient denies any chest pain/shortness of breath. No new abdominal pain. No back pain.. Historical: - Allergies: 04:25 No Known Allergies; km8 - Home Meds: 04:25 hydrochlorothiazide 25 mg Oral tablet 1 tabs daily [Active]; clonidine HCl 0.2 mg Oral km8 tablet 1 tab [Active]; Nifedipine ER Oral 60 mg daily [Active]; hydrocodone-acetaminophen 10-325 mg Oral tablet 1 tab every 6 hours [Active]; tamsulosin 0.4 mg Oral capsule 1 cap daily [Active]; pregabalin 25 mg oral capsule 1 cap 2 times per day [Active]; - PMHx: 04:25 Chronic pain; Hypertensive disorder; pancreatic cancer (Hypertensive disorder); km8 Cerebrovascular accident; - PSHx: 04:25 Unable to Obtain; km8 - Immunization history:: Adult Immunizations up to date. - Infectious Disease History:: Denies. - Social history:: Smoking status: unknown. - Family history:: not pertinent. - Hospitalizations: : No recent hospitalization is reported. ROS: 05:19 Constitutional: Negative for fever, chills, and weight loss, Eyes: Negative for injury, rn pain, redness, and discharge, Neck: Negative for injury, pain, and swelling, Cardiovascular: Negative for chest pain, palpitations, and edema, Respiratory: Negative for shortness of breath, cough, wheezing, and pleuritic chest pain, Abdomen/GI: Negative for abdominal pain, nausea, vomiting, diarrhea, and constipation, Back: Negative for injury and pain, MS/Extremity: Positive for bilateral hip pain Skin: Negative for injury, rash, and discoloration, Neuro: Positive for headache, negative for seizure or focal weakness Exam: 05:19 Constitutional: This is a well developed, well nourished patient who is awake, alert, rn and in no acute distress. Head/Face: Normocephalic, 3 cm superficial laceration to back of head, no active bleeding, no depression Eyes: Periorbital areas with no swelling, redness, or edema. ENT: No oral trauma noted Neck: No midline cervical tenderness Chest/axilla: Normal chest wall appearance and motion. Nontender with no deformity. No crepitus Cardiovascular: Regular rate and rhythm. No pulse deficits. Respiratory: No increased work of breathing, no retractions or nasal flaring. Abdomen/GI: Soft, no focal tenderness or peritoneal signs. No distention Back: No spinal tenderness. MS/ Extremity: Pulses equal, no cyanosis. Neurovascular intact. Full, normal range of motion. Equal circumference. Neuro: Awake and alert, GCS 15 Vital Signs: 04:25 BP 126 / 74; Pulse 89; Resp 18; Temp 97.7(O); Pulse Ox 98% on R/A; Weight 71.21 kg (R); km8 Height 5 ft. 10 in. (R); Pain 10/10; 05:00 BP 157 / 86; Pulse 87; Resp 18; Pulse Ox 99% on R/A; km8 05:31 BP 137 / 86; Pulse 87; Resp 17 S; Pulse Ox 99% on R/A; lg3 06:00 BP 144 / 80; Pulse 90; Resp 16; Pulse Ox 100% on R/A; km8 06:30 BP 125 / 70; Pulse 89; Resp 16; Pulse Ox 96% on R/A; km8 07:30 BP 135 / 83; Pulse 91; Resp 18; Pulse Ox 97% on R/A; db 04:25 Body Mass Index 22.53 (71.21 kg, 177.8 cm) km8 04:25 Pain Scale: Adult km8 Brando Coma Score: 04:25 Eye Response: spontaneous(4). Motor Response: obeys commands(6). Verbal Response: km8 oriented(5). Total: 15. Trauma Score (Adult): 04:25 Eye Response: spontaneous(1); Verbal Response: oriented(1); Motor Response: obeys km8 commands(2); Systolic BP: > 89 mm Hg(4); Respiratory Rate: 10 to 29 per min(4); Brando Score: 15; Trauma Score: 12 Laceration: 06:09 Wound Repair of 3cm ( 1.2in ) subcutaneous laceration to scalp. Distal rn neuro/vascular/tendon intact. Wound prep: Extensive cleansing by nurse, Wound explored extensively. Skin closed with 2 [address] [place] using staple gun. Dressed with 4x4's. Patient tolerated well. MDM: 04:28 Patient medically screened. rn 07:17 Data reviewed: vital signs. ED course: Patient signed out to me by previous physician, ec2 in brief patient arrives today after a ground-level fall with plan to follow-up CT scan of the head and C-spine as well as radiographs.. 07:42 ED course: Pelvis, hip x-rays showed no traumatic process. . ec2 08:17 ED course: No acute CT head or C-spine injury identified. Subluxation identified, ec2 patient likely neurodeficits. Will discharge home. Return precautions given. Instructed on return precautions and to have his audrey removed.. 10/06 04:30 Order name: CT Head C Spine; Complete Time: 08:16 rn 10/06 04:30 Order name: XRAY Pelvis; Complete Time: 07:41 rn 10/06 04:30 Order name: XRAY Hip RIGHT 2 view; Complete Time: 07:41 rn 10/06 04:30 Order name: XRAY Hip LEFT 2 view; Complete Time: 07:41 rn 10/06 05:41 Order name: Wound Care; Complete Time: 06:03 rn Administered Medications: 08:14 Drug: HYDROcodone-acetaminophen PO 10 mg-325 mg 1 tabs PO once Route: PO; rs5 Disposition Summary: 10/07/23 08:18 Discharge Ordered Notes: Location: Home ec2 Problem: new ec2 Symptoms: are unchanged ec2 Condition: Stable ec2 Diagnosis - Fall on same level, unspecified ec2 - Pain in hip ec2 - Scalp Laceration/ Open wound of scalp ec2 Followup: ec2 - With: Private Physician - When: - Reason: Re-evaluation by your physician Discharge Instructions: - Discharge Summary Sheet ec2 - Sutures, Audrey, or Adhesive Wound Closure, [id number] ec2 Forms: - Medication Reconciliation Form ec2 - Antibiotic Education ec2 - Prescription Opioid Use ec2 - Patient Portal Instructions ec2 - Leadership Thank You Letter ec2 Signatures: Dispatcher [employer] Daniel Keyes MD MD rn Harshad Alba RN RN rs5 Jae Ramachandran MD MD ec2 Allie Ochoa RN RN km8
--- NOTE | 2023-10-07 08:18 | ER ---
Nurse's Notes [facility] Name: Tc Doyle Age: 87 yrs Sex: Male : 1935 Arrival Date: 10/07/2023 Time: 04:24 Bed 7 Private MD: Diagnosis: Fall on same level, unspecified;Pain in hip;Scalp Laceration/ Open wound of scalp Presentation: 10/06 04:25 Chief complaint: EMS states: toned out for an unwitnessed fall with laceration to the km8 back of his head; unknown LOC; denies taking blood thinners; pt complaining for bilateral hip pain, right knee pain, and pain in the back of his head. Coronavirus screen: Client denies travel out of the [place] in the last 14 days. Ebola Screen: No symptoms or risks identified at this time. Initial Sepsis Screen: Does the patient meet any 2 criteria? No. Patient's initial sepsis screen is negative. Does the patient have a suspected source of infection? No. Patient's initial sepsis screen is negative. Risk Assessment: Do you want to hurt yourself or someone else? Patient reports no desire to harm self or others. Onset of symptoms was October 07, 2023. 04:25 Method Of Arrival: EMS: [facility] km8 04:25 Acuity: BRENNAN 3 km8 04:25 Care prior to arrival: Medication(s) given: zofran 4 mg, Fentanyl 50 mcg IV IV km8 initiated. 18 GA, in the right antecubital area. Mechanism of Injury: Fall from standing position. Trauma event details: Injury occurred in the [facility]. Triage Assessment: 04:25 General: Appears uncomfortable, Behavior is cooperative, appropriate for age. Pain: km8 Complains of pain in scalp, left hip, right hip and right knee Pain currently is 10 out of 10 on a pain scale. EENT: No signs and/or symptoms were reported regarding the EENT system. Neuro: Level of Consciousness is awake, alert, obeys commands, Oriented to person, place, time, situation, Reports headache Denies dizziness. Cardiovascular: Denies chest pain, shortness of breath, Patient's skin is warm and dry. Respiratory: Airway is patent Respiratory effort is even, unlabored, Respiratory pattern is regular, symmetrical. GI: No signs and/or symptoms were reported involving the gastrointestinal system. : No signs and/or symptoms were reported regarding the genitourinary system. Derm: Skin is intact, is fragile, Skin is dry, Skin is pink, warm \T\ dry. normal, Skin temperature is warm Wound noted scalp Wound is laceration. Musculoskeletal: Circulation, motion, and sensation intact. Reports pain in scalp, left hip, right hip and right knee. Historical: - Allergies: 04:25 No Known Allergies; km8 - Home Meds: 04:25 hydrochlorothiazide 25 mg Oral tablet 1 tabs daily [Active]; clonidine HCl 0.2 mg Oral km8 tablet 1 tab [Active]; Nifedipine ER Oral 60 mg daily [Active]; hydrocodone-acetaminophen 10-325 mg Oral tablet 1 tab every 6 hours [Active]; tamsulosin 0.4 mg Oral capsule 1 cap daily [Active]; pregabalin 25 mg oral capsule 1 cap 2 times per day [Active]; - PMHx: 04:25 Chronic pain; Hypertensive disorder; pancreatic cancer (Hypertensive disorder); km8 Cerebrovascular accident; - PSHx: 04:25 Unable to Obtain; km8 - Immunization history:: Adult Immunizations up to date. - Infectious Disease History:: Denies. - Social history:: Smoking status: unknown. - Family history:: not pertinent. - Hospitalizations: : No recent hospitalization is reported. Screenin:25 Abuse screen: Denies threats or abuse. Denies injuries from another. Nutritional km8 screening: No deficits noted. Tuberculosis screening: No symptoms or risk factors identified. 04:25 [facility] ED Fall Risk Assessment (Adult) History of falling in the last 3 months, km8 including since admission Yes- single mechanical fall (1 pt) Confusion or Disorientation No (0 pts) Intoxicated or Sedated No (0 pts) Impaired Gait Yes (1 pt) Mobility Assist Device Used No (0 pt) Altered Elimination No (0 pt) Score/Fall Risk Level 0 - 2 = Low Risk Oriented to surroundings, Maintained a safe environment, Educated pt \T\ family on fall prevention, incl call for assistance when getting out of bed, Assessed \T\ reinforced patient's understanding of fall precautions, Provided non-skid footwear, Hourly rounding (assess needs \T\ fall precautionary measures) done, Used ambulatory aids as needed (educated on \T\ assisted with). Primary Survey: 04:25 NO uncontrolled hemorrhage observed. A: The client is awake and alert. The airway is km8 patent. Breathing/Chest: Spontaneous respiratory effort, equal unlabored respirations, breath sounds clear bilaterally, regular pattern, symmetrical chest rise and fall. Circulation: No external hemorrhage present. Regular and strong central pulse, skin warm/dry/normal color. Disability Pupils are equal, round, reactive to light and accommodation. Exposure/Environment: There is no evidence of uncontrolled external bleeding. Obvious injury(ies) are noted at this time: laceration to back of head A warming method has been applied: A warm blanket has been provided to the patient. Assessment: 04:25 Reassessment: see triage assessment. [facility] 05:30 Reassessment: Patient appears in no apparent distress at this time. No changes from 3 previously documented assessment. Patient and/or family updated on plan of care and expected duration. Pain level reassessed. Patient is alert, oriented x 3, equal unlabored respirations, skin warm/dry/pink. 06:32 Reassessment: Patient appears in no apparent distress at this time. No changes from km8 previously documented assessment. Patient and/or family updated on plan of care and expected duration. Pain level reassessed. Patient is alert, oriented x 3, equal unlabored respirations, skin warm/dry/pink. 08:15 Reassessment: Patient appears in no apparent distress at this time. Patient and/or db family updated on plan of care and expected duration. Pain level reassessed. Patient is alert, oriented x 3, equal unlabored respirations, skin warm/dry/pink. General: Appears in no apparent distress. comfortable, Behavior is calm, cooperative. Neuro: Level of Consciousness is awake, alert, obeys commands, Oriented to person, place, time, situation. Vital Signs: 04:25 BP 126 / 74; Pulse 89; Resp 18; Temp 97.7(O); Pulse Ox 98% on R/A; Weight 71.21 kg (R); km8 Height 5 ft. 10 in. (R); Pain 10/10; 05:00 BP 157 / 86; Pulse 87; Resp 18; Pulse Ox 99% on R/A; km8 05:31 BP 137 / 86; Pulse 87; Resp 17 S; Pulse Ox 99% on R/A; lg3 06:00 BP 144 / 80; Pulse 90; Resp 16; Pulse Ox 100% on R/A; km8 06:30 BP 125 / 70; Pulse 89; Resp 16; Pulse Ox 96% on R/A; km8 07:30 BP 135 / 83; Pulse 91; Resp 18; Pulse Ox 97% on R/A; db 04:25 Body Mass Index 22.53 (71.21 kg, 177.8 cm) km8 04:25 Pain Scale: Adult km8 Brando Coma Score: 04:25 Eye Response: spontaneous(4). Motor Response: obeys commands(6). Verbal Response: km8 oriented(5). Total: 15. Trauma Score (Adult): 04:25 Eye Response: spontaneous(1); Verbal Response: oriented(1); Motor Response: obeys km8 commands(2); Systolic BP: > 89 mm Hg(4); Respiratory Rate: 10 to 29 per min(4); Tilden Score: 15; Trauma Score: 12 ED Course: 04:25 Patient arrived in ED. ra3 04:25 Arm band placed on right wrist. km8 04:25 Patient has correct armband on for positive identification. Bed in low position. Call km8 light in reach. Side rails up X2. Pulse ox on. NIBP on. 04:25 O2 via room air. km8 04:25 Maintain EMS IV. Dressing intact. Good blood return noted. Site clean \T\ dry. Gauge \T\ km 8 site: 18 gauge right AC. 04:28 Daniel White MD is Attending Physician. rn 04:29 Allie Ochoa RN is Primary Nurse. km8 04:34 Triage completed. km8 06:32 No provider procedures requiring assistance completed. km8 07:03 Attending Physician role handed off by Daniel White MD ec2 07:03 Jae Ramachandran MD is Attending Physician. ec2 07:08 CT Head C Spine In Process Unspecified. EDMS 07:15 XRAY Hip LEFT 2 view In Process Unspecified. EDMS 07:15 XRAY Hip RIGHT 2 view In Process Unspecified. EDMS 07:15 XRAY Pelvis In Process Unspecified. EDMS 08:10 Call light in reach. Assisted to bedside commode. Assisted with urinal. [id number] 08:39 Provided Education on: STAPLE AND WOUND CARE. db 08:39 Warm blanket given. Pillow given. db 08:39 IV discontinued, intact, bleeding controlled, No redness/swelling at site. db Administered Medications: 08:14 Drug: HYDROcodone-acetaminophen PO 10 mg-325 mg 1 tabs PO once Route: PO; rs5 Medication: 06:32 VIS not applicable for this client. km8 Outcome: 08:18 Discharge ordered by . ec2 08:39 Discharged to home via wheelchair, with family, db 08:39 Condition: stable 08:39 Discharge instructions given to patient, Instructed on discharge instructions, follow up and referral plans. 08:47 Patient left the ED. db Signatures: Dispatcher [employer] EDMS Daniel White MD MD rn Able, Lacie RN RN lg3 Suha Lopez RN RN Harshad Vanegas, RN RN rs5 Jae Ramachandran MD MD ec2 Allie Ochoa RN RN km8 Eyad Scott1 Aurora Miranda 3 Corrections: (The following items were deleted from the chart) 04:42 04:25 Care prior to arrival: Medication(s) given: zofran 4 mg, Fentanyl 50 mcg IV km8 km8
[2023-10-07 09:07] VITALS: BP 135/83; TEMP 97.7; O2SAT 97
== END 2023-10-07 08:47 | disposition home or self-care (01) ==
LOC: ER 04:24
PROC: 0HQ0XZZ Repair Scalp Skin, External Approach (ICD-10-PCS; principal; 2023-10-07)
DX: S01.01XA Laceration without foreign body of scalp, initial encounter (principal); M25.552 Pain in left hip; M25.551 Pain in right hip; W18.30XA Fall on same level, unspecified, initial encounter; Z85.07 Personal history of malignant neoplasm of pancreas; Z85.89 Personal history of malignant neoplasm of other organs and systems; I10 Essential (primary) hypertension; Z86.73 Personal history of transient ischemic attack (TIA), and cerebral infarction without residual deficits
CPT/HCPCS: 70450; 72125; 72170; 99284